=== PATIENT | male | born 1995 | race Caucasian/White ===

== ENCOUNTER 2022-11-29 11:51 | Emergency (ER) | payer OTHER ==
[~2022-11-29] VITALS: Ht 165.1 cm; Wt 63.5 kg
[2022-11-29 11:53] VITALS: O2SAT 98
[2022-11-29 12:34] LABS: BASOPHILS # (AUTO) 0.1 K/UL (0.0-0.2); BASOPHILS % (AUTO) 0.7 % (0.0-2.0); EOSINOPHILS % (AUTO) 0.3 % (0.0-7.0); HEMATOCRIT 42.9 % (36.7-47.1); HEMOGLOBIN 14.6 g/dL (12.5-16.3); LYMPHOCYTES % (AUTO) 24.6 % (20.5-51.5); MEAN CORPUSCULAR HEMOGLOBIN 30.8 uug (23.8-33.4); MEAN CORPUSCULAR HGB CONC 34 g/dL (32.5-36.3); MEAN CORPUSCULAR VOLUME 90.4 fL (73.0-96.2); MONOCYTES # (AUTO) 1.1 K/uL (0.1-1.30); MONOCYTES % (AUTO) 9.2 % (0.0-11.0); NEUTROPHILS % (AUTO) 65.2 % (38.5-71.5); PLATELET COUNT (AUTO) 318 K/uL (152-348); RED BLOOD CELL COUNT(AUTO) 4.75 MIL/uL (4.06-5.63); RED CELL DISTRIBUTION WIDTH 12.8 % (12.1-16.2); WHITE BLOOD COUNT (AUTO) 12.2 K/uL (3.6-10.2)
[2022-11-29 12:52] LABS: AMMONIA < 10 umol/L (11-32)
[2022-11-29] MEDS ORDERED: diphenhydrAMINE 50 MG/1 ML VIAL IM ONE (13:00)
[2022-11-29] MEDS ORDERED: HALOPERIDOL LACTATE 5 MG/1 ML VIAL IM ONE (13:00)
[2022-11-29 13:01] LABS: ALANINE AMINOTRANSFERASE 31 U/L (16-63); ALBUMIN 4.7 g/dL (3.4-5.0); ALKALINE PHOSPHATASE 81 U/L (50-136); ASPARTATE AMINOTRANSFERASE 25 U/L (15-37); BILIRUBIN,DIRECT 0.3 mg/dL (0.0-0.2); BILIRUBIN,TOTAL 1.3 mg/dL (0.2-1.0); CALCIUM 9.4 mg/dL (8.5-10.1); CARBON DIOXIDE 24 mmol/L (21-32); CHLORIDE 103 mmol/L (98-107); CREATININE 1.2 mg/dL (0.6-1.3); GLUCOSE 98 mg/dL (74-106); POTASSIUM 4.1 mmol/L (3.5-5.1); SODIUM SERUM 141 mmol/L (136-145); TOTAL PROTEIN, SERUM 7.7 g/dL (6.4-8.2); UREA NITROGEN, BLOOD 21 mg/dL (7-18)
[2022-11-29] MEDS ORDERED: diphenhydrAMINE 50 MG/1 ML VIAL ONE (13:03)
[2022-11-29] MEDS ORDERED: HALOPERIDOL LACTATE 5 MG/1 ML VIAL ONE (13:03)
[2022-11-29 13:06] LABS: THYROID STIMULATING HORMONE 2.102 mIU/mL (0.358-3.740)
[2022-11-29 13:07] LABS: ETHANOL < 3 MG/DL (0-10)
[2022-11-29 13:08] LABS: DIFFERENTIAL COMMENT 1
[2022-11-29 13:10] LABS: ACETAMINOPHEN < 2.0 ug/mL (10-30)
[2022-11-29] MEDS ORDERED: IV NORMAL SALINE 1000 ML BAG IV ONE (18:45)
[2022-11-29] MEDS ORDERED: LIDOCAINE 2% (GLYDO= UROJET) 10 ML JELLY MM ONE (18:45)
== END 2022-11-29 20:37 | disposition home or self-care (01) ==
LOC: ER 11:51
DX: R41.0 Disorientation, unspecified (principal); R07.89 Other chest pain; T50.905A Adverse effect of unspecified drugs, medicaments and biological substances, initial encounter; Z59.00 Homelessness unspecified; Y92.89 Other specified places as the place of occurrence of the external cause
CPT/HCPCS: 80076; 80048; 82140; 84443; 85025; 85730; 84484; 36415; 93005; 71045; 70450; 99285; 96360; 96372 ×2; 80299; 80320; J1200; J1630; J7040; A4663; G0480